=== PATIENT | female | born 1990 | race Caucasian/White ===

== ENCOUNTER 2021-01-19 07:04 | Inpatient (IN) | payer BC ==
[2021-01-19] MEDS ORDERED: AMPICILLIN 2,000 MG in SODIUM CHLORIDE 0.9% 100 ML IVPB STA (07:26)
[2021-01-19] MEDS ORDERED: LIDOCAINE 0.5% (PF) 5 MG/ML (50 ML SDV) SQ PRN (07:26)
[2021-01-19] MEDS ORDERED: OXYTOCIN 10 UNIT/ML 1 ML VIAL IM PRN (07:26)
[2021-01-19] MEDS ORDERED: METHYLERGONOVINE 0.2 MG/ML 1 ML AMP IM PRN (07:26)
[2021-01-19] MEDS ORDERED: TERBUTALINE 1 MG/ML VIAL SQ PRN (07:26)
[2021-01-19] MEDS ORDERED: CARBOPROST TROMETHAMINE 250 MCG/ML 1 ML AMP IM PRN (07:26)
[2021-01-19] MEDS ORDERED: LACTATED RINGERS 1,000 ML IV SCH (07:30)
[2021-01-19 07:59] LABS: Basophils % (A) 0 %; Eosinophils % (A) 0 %; HGB 12.4 gm/dL (11.4-16.0); Lymphocytes % (A) 12 %; MCH 30.8 pg (25.0-35.0); MCHC 34.4 g/dL (31.0-37.0); MCV 89.5 fL (80.0-100.0); Mean Platelet Volume 8.3; Monocytes # (A) 0.3 k/uL (0-1.0); Monocytes % (A) 4 %; Neutrophils # (A) 6.9 k/uL (1.3-7.7); Neutrophils % (A) 83 %; Platelet Count 234 k/uL (150-450); RBC 4.03 m/uL (3.80-5.40); RDW 14.3 % (11.5-15.5); WBC 8.3 k/uL (3.8-10.6)
[2021-01-19] MEDS ORDERED: ROPIVACAINE 100 MG, fentaNYL (PF). 200 MCG in SODIUM CHLORIDE 0.9% 76 ML EPIDURAL ONE (09:29)
--- NOTE | 2021-01-19 09:40 | P.HPOB ---
History of Present Illness H&P Date: 01/19/21 Chief Complaint: Uterine at term: Active labor Shaina is a 30-year-old at 39 weeks gestation who arrives in active labor making cervical change. She is dilated to 645 cm at admission. Her group B strep status is positive. Her course otherwise was unremarkable she is doing very well and all questions were answered for her. She plans epidural for analgesia. A category 1 tracing is noted. Pertinent labs A+ blood type, Rh antibody was negative, rubella is immune, hepatitis B surface antigen/RPR and HIV are negative. We'll plan GBS prophylaxis artificial rupture membranes was performed by Dr. Anthony and we are anticipate spontaneous vaginal delivery. Past Medical History Past Medical History: No Reported History History of Any Multi-Drug Resistant Organisms: None Reported Past Surgical History: No Surgical Hx Reported Past Anesthesia/Blood Transfusion Reactions: No Reported Reaction Past Psychological History: No Psychological Hx Reported Smoking Status: Never smoker - Past Family History Mother Family Medical History: No Reported History Medications and Allergies Home Medications Medication Instructions Recorded Confirmed Type Pnv,Calcium 72/Iron/Folic Acid 1 tab PO ONCE 01/19/21 01/19/21 History [ Plus Tablet] Allergies Allergy/AdvReac Type Severity Reaction Status Date / Time No Known Allergies Allergy Verified 01/19/21 07:15 Exam Osteopathic Statement: *. No significant issues noted on an osteopathic structural exam other than those noted in the History and Physical/Consult. Vital Signs Temp Pulse Resp BP Pulse Ox 01/19/21 08:11 73 16 117/85 01/19/21 07:58 98 F 85 16 131/77 98 Intake and Output 01/18/21 01/19/21 01/19/21 22:59 06:59 14:59 Other: Weight 76.657 kg - OBG Physical Exam Breast: both: normal (no masses) Abdomen: bowel sounds normal, no diffuse tenderness, no bruit present, no g uarding noted, no hepatomegaly, no splenomegaly, no mass Vulva: both: normal Vagina: normal moisture, no discharge Cervix: no lesion, no discharge Uterus: normal size, normal contour Adnexa: both: normal Anus/Rectum: normal perianal skin, no rectal mass, no hemorrhoids, heme negative Results Result Diagrams: 01/19/21 07:50
[2021-01-19] MEDS ORDERED: AMPICILLIN 1,000 MG in SODIUM CHLORIDE 0.9% 50 ML IVPB SCH (11:30)
[2021-01-19] MEDS ORDERED: BENZOCAINE/MENTHOL SPRAY 1 GM/SPRAY AEROSOL TOPICAL PRN (12:40)
[2021-01-19] MEDS ORDERED: diphenhydrAMINE 25 MG CAP PO PRN (12:40)
[2021-01-19] MEDS ORDERED: diphenhydrAMINE 50 MG CAP PO PRN (12:40)
[2021-01-19] MEDS ORDERED: diphenhydrAMINE 50 MG/ML 1 ML VIAL IVP PRN ×2 (12:40)
[2021-01-19] MEDS ORDERED: LANOLIN CREAM 5 GM TUBE TOPICAL PRN (12:40)
[2021-01-19] MEDS ORDERED: HYDROCORTISONE 2.5% RECTAL CREAM 30 GM TUBE RECTAL PRN (12:40)
[2021-01-19] MEDS ORDERED: ZOLPIDEM 5 MG TAB PO PRN (12:40)
[2021-01-19] MEDS ORDERED: SIMETHICONE 80 MG CHEWABLE PO PRN (12:40)
[2021-01-19] MEDS ORDERED: OXYTOCIN 30 UNITS/500 ML NS 30 UNIT in SALINE 1 500ML.BAG IV SCH (12:45)
[2021-01-19] MEDS: IBUPROFEN 600 MG TAB PO SCH ×2 (12:47→18:30)
--- NOTE | 2021-01-19 17:25 | P.PROBDLV ---
Vaginal Delivery Note - . Vaginal Delivery Note: The patient progressed to complete dilation after artificial rupture membranes with clear fluid noted. She did have antibiotics for group B streptococcus. She also received epidural anesthesia. Once reaching complete dilation, she began pushing. 's head came to a crown. With one further push, the 's head delivered across the perineum followed by the anterior shoulder. Nose and mouth were bulb suctioned. With one remaining push, the remainder the infant easily delivered and was placed on mother's abdomen. Cord was clamped and cut and infant was taken to warmer for evaluation. A viable male infant is noted with scores of 9 at 1 minute and 9 at 5 minutes and infant weight of 7 pounds 4.6 ounces. Placenta delivered shortly thereafter, intact, with a three-vessel cord. Uterus contracted well after oxytocin was given and uterine massage was carried out. Is a very small piece of membrane that was also removed with a gloved hand. Inspection of the perineum revealed a small second- degree perineal laceration. This area was anesthetized with 1% lidocaine. The area was then sutured with 3-0 and 2-0 Vicryl suture in the usual multilayer fashion. Estimated blood loss is approximately 200 mL's. Mother and infant are in stable condition. Time of delivery was 1216.
[2021-01-19] MEDS: SENNOSIDES-DOCUSATE SODIUM 1 EACH TAB PO SCH (20:23)
[2021-01-19] MEDS: ACETAMINOPHEN TAB 500 MG TAB PO PRN (20:23)
[2021-01-20] MEDS: IBUPROFEN 600 MG TAB PO SCH ×2 (00:42→08:52)
[2021-01-20] MEDS: ACETAMINOPHEN TAB 500 MG TAB PO PRN (05:55)
--- NOTE | 2021-01-20 08:00 | P.DS ---
Providers Date of admission: 01/19/21 07:20 Expected date of discharge: 01/20/21 Attending physician: Chepe Celestin Primary care physician: Stated None Hospital Course: Shaina is doing very well this morning day 1. She is ambulating, voiding and she is tolerating her diet. She voices no complaints and is deciding if she would like to go home later today. Should she go home later today prescriptions for Motrin is [place] report to her pharmacy discharge instructions were thoroughly reviewed. All the questions are answered for her at this time. Her vital signs are stable and she is afebrile. Heart regular, lungs clear, extremities are without pain. Abdomen is soft and uterus is firm. Lochia is reported to be light. Assessment day 1. Plan discharged home. All other questions are answered for her at this time. Patient Condition at Discharge: Good Plan - Discharge Summary New Discharge Prescriptions: New Ibuprofen [Motrin] 600 mg PO Q6HR PRN #30 tab PRN Reason: Pain No Action Pnv,Calcium 72/Iron/Folic Acid [ Plus Tablet] 1 tab PO ONCE Discharge Medication List Pnv,Calcium 72/Iron/Folic Acid [ Plus Tablet] 1 tab PO ONCE 01/19/21 [History] Ibuprofen [Motrin] 600 mg PO Q6HR PRN #30 tab 01/20/21 [Rx] Follow up Appointment(s)/Referral(s): Chepe Celestin DO [Doctor of Osteopathic Medicine] - 6 Weeks Activity/Diet/Wound Care/Special Instructions: Lifting, limit stairs and driving, and pelvic rest. If any high temperatures, heavy bleeding, or severe pain call my office Discharge Disposition: HOME SELF-CARE
[2021-01-20] MEDS: SENNOSIDES-DOCUSATE SODIUM 1 EACH TAB PO SCH (08:52)
[2021-01-20 10:12] VITALS: RESP 20
[2021-01-20 16:11] VITALS: BP 125/79; PULSE 76; TEMP 97.9
== END 2021-01-20 18:00 | disposition home or self-care (01) | DRG 807 ==
LOC: FBPOP 07:04 → 4FBP 07:20
PROVIDERS: ADMIT Obstetrics & Gynecology; ATTEND Obstetrics & Gynecology
PROC: 10E0XZZ Delivery of Products of Conception, External Approach (ICD-10-PCS; principal; 2021-01-19)
PROC: 0HQ9XZZ Repair Perineum Skin, External Approach (ICD-10-PCS; 2021-01-19)
DX: O99.824 Streptococcus B carrier state complicating childbirth (principal); Z37.0 Single live birth; Z3A.39 39 weeks gestation of pregnancy; O70.0 First degree perineal laceration during delivery
CPT/HCPCS: 59025; 85025; 86850; 86900; 86901; 99213

== ENCOUNTER 2023-10-24 00:34 | Inpatient (IN) | payer BC ==
[2023-10-24] MEDS ORDERED: CARBOPROST TROMETHAMINE 250 MCG/ML 1 ML AMP IM PRN (01:15)
[2023-10-24] MEDS ORDERED: TERBUTALINE 1 MG/ML VIAL SQ PRN (01:15)
[2023-10-24] MEDS ORDERED: miSOPROStoL 200 MCG TAB PO PRN (01:15)
[2023-10-24] MEDS ORDERED: METHYLERGONOVINE 0.2 MG/ML 1 ML AMP IM PRN (01:15)
[2023-10-24] MEDS ORDERED: TRANEXAMIC 1,000 MG/100ML-NACL 1,000 MG in EMPTY BAG 1 BAG IV PRN (01:15)
[2023-10-24] MEDS ORDERED: OXYTOCIN 10 UNIT/ML 1 ML VIAL IM PRN (01:15)
[2023-10-24] MEDS: LACTATED RINGERS 1,000 ML IV SCH (01:27)
[2023-10-24 01:58] LABS: Basophils % (A) 0 %; Eosinophils % (A) 0 %; HCT 38.5 % (34.0-46.0); Lymphocytes # (A) 1.5 k/uL (1.0-4.8); Lymphocytes % (A) 16 %; MCH 30.9 pg (25.0-35.0); MCHC 33.9 g/dL (31.0-37.0); Mean Platelet Volume 7.7; Monocytes # (A) 0.4 k/uL (0-1.0); Monocytes % (A) 4 %; Neutrophils # (A) 7.4 k/uL (1.3-7.7); Neutrophils % (A) 79 %; Platelet Count 286 k/uL (150-450); RBC 4.23 m/uL (3.80-5.40); RDW 13.9 % (11.5-15.5); WBC 9.5 k/uL (3.8-10.6)
[2023-10-24] MEDS ORDERED: HYDROCORTISONE 2.5% RECTAL CREAM 30 GM TUBE RECTAL PRN (02:52)
[2023-10-24] MEDS ORDERED: diphenhydrAMINE 50 MG/ML 1 ML VIAL IVP PRN ×2 (02:52)
[2023-10-24] MEDS ORDERED: diphenhydrAMINE 50 MG CAP PO PRN (02:52)
[2023-10-24] MEDS ORDERED: LANOLIN CREAM 1 GM TUBE TOPICAL PRN (02:52)
[2023-10-24] MEDS ORDERED: diphenhydrAMINE 25 MG CAP PO PRN (02:52)
[2023-10-24] MEDS ORDERED: SIMETHICONE 80 MG CHEWABLE PO PRN (02:52)
[2023-10-24] MEDS ORDERED: ZOLPIDEM 5 MG TAB PO PRN (02:52)
--- NOTE | 2023-10-24 02:55 | P.HPOB ---
History of Present Illness H&P Date: 10/24/23 Chief Complaint: IUP at 40 and 1, active labor This is a 33-year-old 2 para 1 at 40-1/7 weeks with an estimated due date of 10/22 presents with complaints of contractions since 1630. Patient denies loss of fluid. Patient had been receiving routine care which has been essentially uncomplicated. On blood work this patient is a blood type of a positive, rubella status immune, hepatitis B surface engine negative, HIV negative, RPR is nonreactive, group B strep cultures are negative. Review of Systems Constitutional: Denies chills, Denies fatigue, Denies fever Ears, nose, mouth and throat: Denies headache Cardiovascular: Reports leg edema Respiratory: Denies dyspnea Gastrointestinal: Denies nausea, Denies vomiting Genitourinary: Reports Past Medical History History of Any Multi-Drug Resistant Organisms: None Reported Past Surgical History: Cholecystectomy Past Psychological History: No Psychological Hx Reported Smoking Status: Never smoker Past Drug Use History: None Reported Medications and Allergies Home Medications Medication Instructions Recorded Confirmed Type Aspirin [Adult Low Dose Aspirin EC] 81 mg PO 10/24/23 History Vit No.179/Iron/Folic 1 tab DAILY 10/24/23 10/24/23 History [ Tablet] Allergies Allergy/AdvReac Type Severity Reaction Status Date / Time No Known Allergies Allergy Verified 10/24/23 00:41 Exam Osteopathic Statement: *. No significant issues noted on an osteopathic structural exam other than those noted in the History and Physical/Consult. Vital Signs Temp Pulse Resp BP Pulse Ox 10/24/23 01:15 98.9 F 105 H 16 115/68 99 Intake and Output 10/23/23 10/23/23 10/24/23 14:59 22:59 06:59 Other: Weight 72.575 kg Targeted physical exam is performed this date General is a well-nourished well- developed female in acute labor, breathing is nonlabored, abdomen is gravid, on cervical exam she is completely dilated 100% effaced at a -1 station bulging bag of water is appreciated amniotomy is performed and clear fluid is obtained. Results Result Diagrams: 10/24/23 01:09 Assessment and Plan (1) Term Current Visit: Yes Status: Acute Code(s): Z34.90 - ENCNTR FOR SUPRVSN OF NORMAL , UNSP, UNSP TRIMESTER SNOMED Code(s): 85856845 (2) Active labor Current Visit: Yes Status: Acute Code(s): NTP8630 - SNOMED Code(s): 566978031 Plan: 33-year-old at 40-1/7 weeks presents in active labor. Patient is admitted with anticipation of vaginal delivery
--- NOTE | 2023-10-24 02:57 | P.PROBDLV ---
Vaginal Delivery Note - . Vaginal Delivery Note: 33-year-old at 40-1/7 weeks presents to labor and delivery in active labor. Patient was admitted amniotomy was performed and clear fluid was obtained. Patient began pushing, bradycardia was appreciated when was vacuum was applied with good placement with 1 pull/contraction she had a vacuum-assisted vaginal delivery of a viable male in occiput posterior presentation at 236, weight of 7 pounds 10.9 ounces, of 8 and 9 at 1 and 5 minutes respectively. After 2-minute delay the umbilical cord was doubly clamped and cut, and the placenta was delivered spontaneously intact with a three-vessel cord being noted. On inspection the patient's vaginal vault a first-degree vaginal laceration was appreciated this was repaired in the usual fashion with 3-0 repeat after instillation of lidocaine. After closure was complete hemostasis was noted. Uterus was noted to be firm below the umbilicus. All counts were to be correct x 2. Patient and infant tolerated delivery well and are resting comfortably.
[2023-10-24] MEDS ORDERED: OXYTOCIN 30 UNITS/500 ML NS 30 UNIT in SALINE 1 500ML.BAG IV SCH (03:00)
[2023-10-24] MEDS: IBUPROFEN 600 MG TAB PO SCH (03:18)
[2023-10-24] MEDS: ACETAMINOPHEN TAB 325 MG TAB PO PRN (05:54)
[2023-10-24] MEDS: LIDOCAINE 0.5% (PF) 5 MG/ML (50 ML SDV) SQ PRN (05:55)
[2023-10-24] MEDS: BENZOCAINE/MENTHOL SPRAY 1 GM/SPRAY AEROSOL TOPICAL PRN (05:57)
[2023-10-24] MEDS: PRENATAL VIT-IRON-FOLIC ACID 1 EACH TABLET PO SCH (10:02)
[2023-10-24] MEDS: SENNOSIDES-DOCUSATE SODIUM 1 EACH TAB PO SCH (10:02)
[2023-10-25 08:57] VITALS: BP 102/70; PULSE 93; RESP 16; TEMP 97.3
--- NOTE | 2023-10-25 12:23 | P.DS ---
Providers Date of admission: 10/24/23 00:55 Expected date of discharge: 10/25/23 Attending physician: Rosemarie Jason MD Primary care physician: Stated None Hospital Course: Ms. Ordoñez is a 33 year old now PPD#1 s/p vacuum assisted vaginal delivery. The patient is doing well this morning and had no acute events overnight. She has no complaints this morning. She reports minimal lochia, passing flatus, voiding without difficulty, ambulating, and eating/drinking without nausea or vomiting. doing well at bedside, s/p circumcision. She denies chest pain, shortness of breathing, fevers, or chills overnight. She denies pain or swelling in the legs. restrictions are reviewed with the patient including pelvic rest for 6 weeks. The patient is encouraged to call the office if she experiences any heavy bleeding, foul-smelling discharge, breast complaints, or any if she has any other concerns. She will follow up in the office with in 6 weeks for exam. Patient plans to use Motrin and Tylenol OTC as needed for pain. All questions are answered. Assessment: 33 year old now PPD#1 s/p VAVD Patient Condition at Discharge: Good Plan - Discharge Summary Discharge Rx Participant: No New Discharge Prescriptions: No Action Vit No.179/Iron/Folic [ Tablet] 1 tab DAILY Aspirin [Adult Low Dose Aspirin EC] 81 mg PO Discharge Medication List Aspirin [Adult Low Dose Aspirin EC] 81 mg PO 10/24/23 [History] Vit No.179/Iron/Folic [ Tablet] 1 tab DAILY 10/24/23 [History] Follow up Appointment(s)/Referral(s): Rosemarie Jason MD [STAFF PHYSICIAN] - 12/09/23 1:45 pm Activity/Diet/Wound Care/Special Instructions: Instructions 1. Do not begin any exercise program for 3 weeks. 2. Do not resume sexual relations for 6 weeks or longer if uncomfortable. 3. You may take tub baths or showers at any time. 4. You may use tampons if desired after 6 weeks. 5. Keep any areas repaired with stitches clean and dry. 6. If you are not nursing, wear a good fitting, supportive bra during the day and limit fluid intake for at least 1 week to prevent breast engorgement. 7. Call the office, , within the next week to make appointment for your 6 week checkup if it has not already been made. 8. Report any of the following occurrences to the doctor promptly: a. Heavy, excessive bleeding b. Chills, fever c. Burning or frequency of urination d. Pain or redness and breasts if nursing e. Increasing pain or swelling of vulva (stitches). In addition to the above instructions, the following additional should be followed: 1. No heavy lifting or straining (exercising) until after 6 week checkup. 2. Keep abdominal incision clean and dry: You may wear a dressing if more comfortable. 3. Make office appointment for 2 weeks after delivery date. Discharge Disposition: HOME SELF-CARE
== END 2023-10-25 15:40 | disposition home or self-care (01) | DRG 807 ==
LOC: FBPOP 00:34 → MERGE 00:55 → 4FBP 00:55
PROVIDERS: ADMIT Obstetrics & Gynecology Obstetrics; ATTEND Obstetrics & Gynecology
PROC: 0HQ9XZZ Repair Perineum Skin, External Approach (ICD-10-PCS; principal; 2023-10-24)
PROC: 10907ZC Drainage of Amniotic Fluid, Therapeutic from Products of Conception, Via Natural or Artificial Opening (ICD-10-PCS; principal; 2023-10-24)
PROC: 10D07Z6 Extraction of Products of Conception, Vacuum, Via Natural or Artificial Opening (ICD-10-PCS; principal; 2023-10-24)
DX: O48.0 Post-term pregnancy (principal); O70.0 First degree perineal laceration during delivery; O76 Abnormality in fetal heart rate and rhythm complicating labor and delivery; Z79.82 Long term (current) use of aspirin; Z3A.40 40 weeks gestation of pregnancy; Z37.0 Single live birth
CPT/HCPCS: 59025; 85025; 86850; 86900; 86901; 99213